=== PATIENT | male | born 1930 | race Caucasian/White ===

== ENCOUNTER → 2016-11-18 | Day surgery (SDC) | payer MEDICARE, BC ==
[~2016-11-18] MED LIST: ACETAMINOPHEN PO; AGGRENOX PO; ASPIRIN PO; ASPIRIN81 M2 PO; ASPIRIN81 MG PO; CHEWABLE ASPIRI81 MG PO; CIPRO PO; FISH OIL 1,0001 CAP PO; FISH OIL 1,2001 CAP PO; FISH OIL 1,2001 EAC2 PO; FISH OIL OMEGA1 EAC2 PO; FISH OIL PO; FLOMAX0.4 M1 PO; FLORASTOR PO; HCTZ PO; HYDRALAZINE HCL50 MG PO; KEFLEX500 M2 PO; LAXATIVE5 M1; LO-DOSE ASPIRIN81 M1 PO; LORTAB 7.5-5001 TAB PO; METOPROLOL TAR100 MG PO; MULTI VITAMIN1 EACH PO; NIACIN PO; SIMVASTATIN20 MG PO; TOPROL XL 50 MG50 MG PO; TOPROL XL PO; TOPROL XL100 MG PO; ZOCOR PO; ZOCOR20 MG PO
--- NOTE | ~2016-11-18 | OR ---
Unit #: [id number] #: [id number] Patient: JAMES BURROWS [id number] [address] [address] [id number] O MR#: [id number] NAME: JAMES BURROWS. ROOM: Date of Procedure: 11/18/2016 Admission Date: 11/18/2016 Surgeon: Regino Moreno M.D. : 1930 Attending Physician: Regino Moreno M.D. Primary Care Physician: Pastora Alonzo M.D. OPERATIVE REPORT PREOPERATIVE DIAGNOSES History of bladder cancer, right ureteral obstruction. POSTOPERATIVE DIAGNOSES History of bladder cancer, right ureteral obstruction. PROCEDURES PERFORMED Cystoscopy, right stent exchange. ANESTHESIA General. DESCRIPTION OF PROCEDURE After informed consent, he was taken to the operating room, placed under general anesthetic, and positioned lithotomy. His penis and perineum were prepped and draped in usual sterile fashion. Cystoscopy was performed revealing a normal urethra. He had trilobar hyperplasia of the prostate. Inspection of the bladder showed no tumors. The entire bladder was inspected. He had a stent exiting the right ureteral orifice. This was pulled out to the meatus under fluoroscopy using a grasper. A wire was placed inside the stent. The stent was removed. A new stent was placed under fluoroscopy without the tether attached. It was 5 x 26. There was a good coil in the bladder and in the collecting system. His bladder had no evidence of recurrence of bladder cancer. He will be discharged home and return to see me for cystoscopy and stent change in the future. Dictated by... Miguel Sherwood/arianne TD: 11/18/2016 15:12 JOB #: [id number] Unit #: [id number] #: [id number] Patient: JAMES BURROWS OPERATIVE REPORT Page 1 of 1 X Regino Moreno MD X PROCEDURE OPERATIVE NOTE
--- NOTE | ~2016-11-18 | EKG ---
PATIENT: JAMES BURROWS UNIT #: [id number] Ventricular Rate: 55 BPM Atrial Rate: 55 BPM P-R Interval: 160 ms QRS Duration: 76 ms Q-T Interval: 408 ms QTC Calculation(Bezet): 390 ms P [place]: 42 degrees Calculated R [place]: 17 degrees Calculated T [place]: -2 degrees Diagnosis Line: Sinus bradycardia with occasional Premature Diagnosis Line: ventricular complexes Diagnosis Line: Otherwise normal ECG Diagnosis Line: When compared with ECG of 16-JUN-2016 23:06, Diagnosis Line: Premature ventricular complexes are now Present Diagnosis Line: Vent. rate has decreased BY 35 BPM Diagnosis Line: ST no longer depressed in Anterior leads Diagnosis Line: Confirmed by ADOLFO BARBOSA MD ([id number]) on Diagnosis Line: 11/20/2016 7:27:10 AM INTERPRETING MD: FAMILIA GOLD
== END | disposition home or self-care (01) ==
LOC: CSUR 06:49
DX: N13.5 Crossing vessel and stricture of ureter without hydronephrosis (principal); N40.0 Benign prostatic hyperplasia without lower urinary tract symptoms; I25.10 Atherosclerotic heart disease of native coronary artery without angina pectoris; E11.9 Type 2 diabetes mellitus without complications; I10 Essential (primary) hypertension; M19.90 Unspecified osteoarthritis, unspecified site; Z85.51 Personal history of malignant neoplasm of bladder; Z86.73 Personal history of transient ischemic attack (TIA), and cerebral infarction without residual deficits; Z79.82 Long term (current) use of aspirin; Z79.899 Other long term (current) drug therapy; Z98.890 Other specified postprocedural states
CPT/HCPCS: 82947; 93005; C2617; J1956; J2250